=== PATIENT | female | born 1990 | race Caucasian/White ===

== ENCOUNTER 2019-11-05 21:10 | Emergency (ER) | payer MEDICAID ==
[2019-11-05 21:18] VITALS: BP 132/74
[2019-11-06 00:23] LABS: Basophils % (Auto) 0.7 % (0.0-1.8); Eosinophils # (Auto) 0.1 K/mm3 (0.0-0.4); Hematocrit 35.3 % (30.3-42.9); Hemoglobin 12.5 gm/dl (10.1-14.3); Lymphocytes # (Auto) 1.1 K/mm3 (1.2-5.4); Lymphocytes % (Auto) 17.5 % (13.4-35.0); Mean Corpuscular HGB Conc 35 % (30-34); Mean Corpuscular Volume 94 fl (79-97); Monocytes # (Auto) 0.5 K/mm3 (0.0-0.8); Monocytes % (Auto) 7.2 % (0.0-7.3); Platelet Count 222 K/mm3 (140-440); Red Blood Count 3.75 M/mm3 (3.65-5.03); Red Cell Distribution Width 12.9 % (13.2-15.2)
[2019-11-06 00:42] LABS: Alanine Aminotransferase 11 units/L (7-56); Albumin 4.7 g/dL (3.9-5); BUN/Creatinine Ratio 14; Blood Urea Nitrogen 13 mg/dL (7-17); Calcium 9.3 mg/dL (8.4-10.2); Hemolysis Index 3
--- NOTE | 2019-11-06 01:10 | Emergency Department Report ---
ED General Adult HPI - General Chief complaint: Neuro Symptoms/Deficit Stated complaint: NUMBNESS TO FACE, TROUBLE SWALLOWING Time Seen by Provider: 11/05/19 23:16 Source: patient Mode of arrival: Ambulatory Limitations: No Limitations - History of Present Illness Initial comments: Patient is a 29-year-old female who presents emergency room with complaints of "tightness" in the nose, forehead, ears that began a few days ago. She states that she also felt a discomfort in her throat and felt like she was having palpitations. Patient denies any vision changes, chest pain, shortness of breath, fever, cough, weakness, complete numbness, leg swelling, nausea vomiting diarrhea. She denies any recent surgery, travel, sick contacts, hormone use. She denies any past medical history allergies medications. She states her last menstrual cycle was October 20. Patient states that she has had diffuse tingling sensation for a long time now and states that she had a normal CT scan of her head 6 months ago performed by her primary care physician. She has not seen a neurologist. - Related Data Home Medications Medication Instructions Recorded Confirmed Last Taken Vit-Fe Fumar-FA [ 1 tab PO QDAY 11/22/15 06/08/18 06/06/18 Vitamin] Valacyclovir HCl [Valtrex] 1,000 mg PO QDAY 11/22/15 06/08/18 06/06/18 Previous Rx's Medication Instructions Recorded Last Taken Type Ibuprofen [Motrin 600 MG tab] 600 mg PO Q6H PRN #30 tablet 11/24/15 Unknown Rx HYDROcodone/APAP 5-325 [[place] 1 each PO Q6HR PRN #20 tablet 06/08/18 Unknown Rx 5/325] Ibuprofen [Ibuprofen 800] 800 mg PO Q8H PRN #30 tablet 06/08/18 Unknown Rx Fluticasone [Flonase] 1 spray NS QDAY #1 bottle 11/06/19 Unknown Rx Loratadine [Claritin] 10 mg PO DAILY #14 tablet 11/06/19 Unknown Rx Allergies Allergy/AdvReac Type Severity Reaction Status Date / Time No Known Allergies Allergy Verified 06/06/18 12:16 ED Review of Systems ROS: Stated complaint: NUMBNESS TO FACE, TROUBLE SWALLOWING Other details as noted in HPI Comment: All other systems reviewed and negative ED Past Medical Hx - Past Medical History Previous Medical History?: No Hx Hypertension: No Hx Congestive Heart Failure: No Hx Diabetes: No Hx Deep Vein Thrombosis: No Hx GERD: Yes Hx Renal Disease: No Hx Sickle Cell Disease: No Hx Seizures: No Hx Asthma: No Hx COPD: No Hx HIV: No Additional medical history: ovarian cyst - Surgical History Past Surgical History?: No - Social History Smoking Status: Never Smoker Substance Use Type: None - Medications Home Medications: Home Medications Medication Instructions Recorded Confirmed Last Taken Type Vit-Fe Fumar-FA [ 1 tab PO QDAY 11/22/15 06/08/18 06/06/18 History Vitamin] Valacyclovir HCl [Valtrex] 1,000 mg PO QDAY 11/22/15 06/08/18 06/06/18 History Ibuprofen [Motrin 600 MG tab] 600 mg PO Q6H PRN #30 tablet 11/24/15 06/08/18 Unknown Rx HYDROcodone/APAP 5-325 [[place] 1 each PO Q6HR PRN #20 tablet 06/08/18 Unknown Rx 5/325] Ibuprofen [Ibuprofen 800] 800 mg PO Q8H PRN #30 tablet 06/08/18 Unknown Rx Fluticasone [Flonase] 1 spray NS QDAY #1 bottle 11/06/19 Unknown Rx Loratadine [Claritin] 10 mg PO DAILY #14 tablet 11/06/19 Unknown Rx ED Physical Exam - General Limitations: No Limitations General appearance: alert, in no apparent distress - Head Head exam: Present: atraumatic, normocephalic - Eye Eye exam: Present: normal appearance, PERRL, EOMI Pupils: Present: normal accommodation - ENT ENT exam: Present: normal orophraynx, mucous membranes moist, TM's normal bilaterally, normal external ear exam, other (no erythema of the nasal turbinates, no purulent drainage from the nasal turbinates, no sinus ttp) - Respiratory Respiratory exam: Present: normal lung sounds bilaterally. Absent: respiratory distress, wheezes, rales, rhonchi, stridor, chest wall tenderness, accessory muscle use, decreased breath sounds, prolonged expiratory - Cardiovascular Cardiovascular Exam: Present: regular rate, normal rhythm, normal heart sounds. Absent: systolic murmur, diastolic murmur, rubs, gallop - Neurological Exam Neurological exam: Present: alert, oriented X3, CN II-XII intact, normal gait, other (normal finger to nose, normal heel to more, normal rapid alternating movements, 5/5 strength in the BUE/BLE, sensation intact throughout, no facial asymmery, no focal neuro deficit). Absent: motor sensory deficit - Psychiatric Psychiatric exam: Present: normal affect, normal mood - Skin Skin exam: Present: warm, dry, intact ED Course Vital Signs 11/05/19 11/06/19 21:13 01:17 Temperature 98.1 F Pulse Rate 90 74 Respiratory 18 18 Rate Blood Pressure 132/74 O2 Sat by Pulse 100 100 Oximetry ED Medical Decision Making - Lab Data Result diagrams: 11/05/19 23:37 11/05/19 23:37 Lab Results 11/05/19 11/05/19 11/05/19 Range/Units 23:37 23:37 23:37 WBC 6.6 (4.5-11.0) K/mm3 RBC 3.75 (3.65-5.03) M/mm3 Hgb 12.5 (10.1-14.3) gm/dl Hct 35.3 (30.3-42.9) % MCV 94 (79-97) fl MCH 33 H (28-32) pg MCHC 35 H (30-34) % RDW 12.9 L (13.2-15.2) % Plt Count 222 (140-440) K/mm3 Lymph % (Auto) 17.5 (13.4-35.0) % [place] % (Auto) 7.2 (0.0-7.3) % Eos % (Auto) 1.0 (0.0-4.3) % Baso % (Auto) 0.7 (0.0-1.8) % Lymph # 1.1 L (1.2-5.4) K/mm3 [place] # 0.5 (0.0-0.8) K/mm3 Eos # 0.1 (0.0-0.4) K/mm3 Baso # 0.0 (0.0-0.1) K/mm3 Seg Neutrophils % 73.6 H (40.0-70.0) % Seg Neutrophils # 4.8 (1.8-7.7) K/mm3 Sodium 141 (137-145) mmol/L Potassium 3.8 (3.6-5.0) mmol/L Chloride 104.5 (98-107) mmol/L Carbon Dioxide 24 (22-30) mmol/L Anion Gap 16 mmol/L BUN 13 (7-17) mg/dL Creatinine 0.9 (0.7-1.2) mg/dL Estimated GFR > 60 ml/min BUN/Creatinine Ratio 14 % Glucose 100 (65-100) mg/dL Calcium 9.3 (8.4-10.2) mg/dL Phosphorus 3.80 (2.5-4.5) mg/dL Magnesium 2.30 (1.7-2.3) mg/dL Total Bilirubin 0.40 (0.1-1.2) mg/dL AST 19 (5-40) units/L ALT 11 (7-56) units/L Alkaline Phosphatase 78 (35-129) units/L Total Creatine Kinase 71 (30-135) units/L Troponin T (0.00-0.029) ng/mL Total Protein 7.6 (6.3-8.2) g/dL Albumin 4.7 (3.9-5) g/dL Albumin/Globulin Ratio 1.6 % TSH 2.970 (0.270-4.200) mlU/mL HCG, Qual (Negative) 11/05/19 11/06/19 Range/Units 23:37 00:01 WBC (4.5-11.0) K/mm3 RBC (3.65-5.03) M/mm3 Hgb (10.1-14.3) gm/dl Hct (30.3-42.9) % MCV (79-97) fl MCH (28-32) pg MCHC (30-34) % RDW (13.2-15.2) % Plt Count (140-440) K/mm3 Lymph % (Auto) (13.4-35.0) % [place] % (Auto) (0.0-7.3) % Eos % (Auto) (0.0-4.3) % Baso % (Auto) (0.0-1.8) % Lymph # (1.2-5.4) K/mm3 [place] # (0.0-0.8) K/mm3 Eos # (0.0-0.4) K/mm3 Baso # (0.0-0.1) K/mm3 Seg Neutrophils % (40.0-70.0) % Seg Neutrophils # (1.8-7.7) K/mm3 Sodium (137-145) mmol/L Potassium (3.6-5.0) mmol/L Chloride (98-107) mmol/L Carbon Dioxide (22-30) mmol/L Anion Gap mmol/L BUN (7-17) mg/dL Creatinine (0.7-1.2) mg/dL Estimated GFR ml/min BUN/Creatinine Ratio % Glucose (65-100) mg/dL Calcium (8.4-10.2) mg/dL Phosphorus (2.5-4.5) mg/dL Magnesium (1.7-2.3) mg/dL Total Bilirubin (0.1-1.2) mg/dL AST (5-40) units/L ALT (7-56) units/L Alkaline Phosphatase (35-129) units/L Total Creatine Kinase (30-135) units/L Troponin T < 0.010 (0.00-0.029) ng/mL Total Protein (6.3-8.2) g/dL Albumin (3.9-5) g/dL Albumin/Globulin Ratio % TSH (0.270-4.200) mlU/mL HCG, Qual Negative (Negative) - EKG Data EKG shows normal: sinus rhythm, axis, intervals, QRS complexes, ST-T waves Rate: normal - Medical Decision Making Patient is a 29-year-old female who presents emergency room with complaints of "tightness" in the nose, forehead, ears that began a few days ago. She states that she also felt a discomfort in her throat and felt like she was having palpitations. Patient denies any vision changes, chest pain, shortness of breath, fever, cough, weakness, complete numbness, leg swelling, nausea vomiting diarrhea. She denies any recent surgery, travel, sick contacts, hormone use. She denies any past medical history allergies medications. She states her last menstrual cycle was October 20. Patient states that she has had diffuse tingling s ensation for a long time now and states that she had a normal CT scan of her head 6 months ago performed by her primary care physician. She has not seen a neurologist. Vitals are normal. No abnormality on physical examination as documented in chart. Neuro exam is normal, no focal neuro deficits. Labs are normal. EKG is normal. Patient will be given Flonase and Claritin to help with the pressure she feels. No signs of acute sinusitis at this time. Patient will be referred to outpatient cardiology for the palpitations, EKG is normal, electrolytes are normal, TSH is normal. Patient will be referred to neurology for her chronic tingling sensation. Patient will be referred to her primary care physician. advised pt Please take medication as prescribed. Please follow- up with your primary care doctor. Please follow-up with a application performance engineer. Please follow-up with a neurologist for your chronic tingling. Return to emergency room for any new or worsening symptoms. Critical care attestation.: If time is entered above; I have spent that time in minutes in the direct care of this critically ill patient, excluding procedure time. ED Disposition Clinical Impression: Nasal discomfort, Sinus pressure, Throat discomfort, Palpitations Ear discomfort Qualifiers: Laterality: bilateral Qualified Code(s): H92.03 - Otalgia, bilateral Disposition: TO HOME OR SELFCARE Is pt being admited?: No Does the pt Need Aspirin: No Condition: Stable Instructions: Palpitations (ED), Allergies (ED) Additional Instructions: Please take medication as prescribed. Please follow-up with your primary care doctor. Please follow-up with a application performance engineer. Please follow-up with a neurologist for your chronic tingling. Return to emergency room for any new or worsening symptoms. Prescriptions: Loratadine [Claritin] 10 mg PO DAILY #14 tablet Fluticasone [Flonase] 1 spray NS QDAY #1 bottle Referrals: KERI RANDALL MD [Primary Care Provider] - 2-3 Days RADHA SHEPHERD MD [Staff Physician] - 2-3 Days KWADWO KAISER MD [Staff Physician] - 2-3 Days DARÍO ALVAREZ MD [Referring] - 2-3 Days Time of Disposition: 01:10 Print Language: RWANDAN
== END 2019-11-06 01:16 | disposition home or self-care (01) ==
LOC: ED 21:10
DX: R00.2 Palpitations (principal); R13.10 Dysphagia, unspecified; J34.89 Other specified disorders of nose and nasal sinuses; H92.03 Otalgia, bilateral; K21.9 Gastro-esophageal reflux disease without esophagitis
CPT/HCPCS: 36415; 80053; 82550; 83735; 84100; 84443; 84484; 84703; 85025; 93005

== ENCOUNTER 2021-10-14 10:12 | Outpatient (CLI) | payer MEDICAID ==
[2021-10-14 12:37] VITALS: BP 116/57
== END 2021-10-14 13:06 | disposition home or self-care (01) ==
LOC: TRG 10:12 → APU 10:13 → TRG 13:06
PROVIDERS: ATTEND Obstetrics & Gynecology
DX: Z34.93 Encounter for supervision of normal pregnancy, unspecified, third trimester (principal); Z3A.39 39 weeks gestation of pregnancy
CPT/HCPCS: 59025